=== PATIENT | male | born 1975 | race Caucasian/White ===

== ENCOUNTER 2020-09-14 11:26 | Emergency (ER) | payer BC | END 2020-09-14 13:03 | disposition home or self-care (01) | LOC: JVIRT 11:26 | DX: Z03.818 Encounter for observation for suspected exposure to other biological agents ruled out (principal) | CPT/HCPCS: C9803; G2012-GT; U0003 ==

== ENCOUNTER 2020-09-24 12:57 | Emergency (ER) | payer BC | END 2020-09-24 15:34 | disposition home or self-care (01) | LOC: JVIRT 12:57 | DX: Z03.818 Encounter for observation for suspected exposure to other biological agents ruled out (principal) | CPT/HCPCS: C9803; Q3014-GT; U0003 ==